=== PATIENT | female | born 2000 | race Caucasian/White ===

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

== ENCOUNTER → 2021-03-12 09:02 | Outpatient (CLI) | payer BC, SELFPAY ==
[2021-03-13 18:18] LABS: SARS-CoV-2 RNA PCR Negative
== END ==
PROVIDERS: PCP Nurse Practitioner Family; Visit Provider Nurse Practitioner Family
DX: R09.81 Nasal congestion (principal); Z20.822 Contact with and (suspected) exposure to COVID-19
CPT/HCPCS: C9803; U0003; U0005

== ENCOUNTER 2021-11-19 15:02 | Outpatient (CLI) | payer BC, SELFPAY ==
--- NOTE | ~2021-11-19 | CT_ITS ---
EXAMINATION: CT abdomen pelvis w con DATE: 11/19/2021 15:35 INDICATION: Right lower quadrant abdominal pain for 2 days. Nausea, diarrhea. TECHNIQUE: Computed tomography (CT) of the abdomen and pelvis was performed with 100 CC Omnipaque 350 intravenous contrast. Automated exposure control and iterative reconstruction technique were employe d. Exam dose: 366.12 mGy-cm total exam DLP. COMPARISON: None. FINDINGS: The lung bases are clear. Normal heart size. No pericardial or pleural effusion. The liver, gallbladder, bile ducts, spleen, pancreas, pancreatic duct, and adrenal glands and kidneys appear normal. No urinary tract calculus or hydroureteronephrosis is evident. The uterus, adnexal areas and urinary bladder appear normal. Normal caliber of the abdominal aorta. No intraperitoneal or retroperitoneal or pelvic mass lesion or adenopathy or ascites. Normal appendix. Minimal colonic diverticulosis; no CT evidence of diverticulitis. No bowel obstruction or intraperitoneal free air. Included skeletal structures are unremarkable. IMPRESSION: Normal appendix Reviewed, dictated and finalized at Location A. Reviewed, dictated and finalized at location B. IMPRESSION: Normal appendix
== END 2021-11-19 15:03 | disposition home or self-care (01) ==
LOC: ANHIMG 15:05
PROVIDERS: PCP Nurse Practitioner Family; Visit Provider Nurse Practitioner Family
DX: R10.31 Right lower quadrant pain (principal)
CPT/HCPCS: 74177; Q9967

== ENCOUNTER 2024-03-05 09:02 | Outpatient (CLI) | payer BC, SELFPAY ==
--- NOTE | ~2024-03-05 | US_ITS ---
US breast LT limited INDICATION: Palpable left breast/axillary lump TECHNIQUE: Dedicated Limited left breast/axillary ultrasound COMPARISON: No prior studies for comparison. FINDINGS: The left breast/axilla is/are composed of normal heterogeneous echotexture without focal so lid or cystic mass. IMPRESSION: 1: Normal limited left breast/axillary ultrasound. BI-RADS CATEGORY 1 - NEGATIVE Reviewed, dictated and finalized at location B. S TIE TURNER
== END 2024-03-05 09:03 | disposition home or self-care (01) ==
LOC: MICIMG 09:05
PROVIDERS: PCP Nurse Practitioner; Visit Provider Nurse Practitioner
DX: N63.20 Unspecified lump in the left breast, unspecified quadrant (principal)
CPT/HCPCS: 76642

== ENCOUNTER 2024-04-16 09:22 | Outpatient (CLI) | payer BC, SELFPAY ==
--- NOTE | ~2024-04-16 | MM_ITS ---
EXAMINATION: MM diagnostic stephanie LT w tj HISTORY: Palpable left breast abnormality TECHNIQUE: Additional 3-D tomosynthesis images of the left breast were performed and synthetic 2-D im ages were generated. CAD analysis was submitted and interpreted. COMPARISON: Ultrasound dated 03/05/2024 BREAST PARENCHYMAL COMPOSITION: Not dense: There are scattered areas of fibroglandular density. FINDINGS: There are no suspicious masses, calcifications or architectural distortion in the left jhony st to suggest malignancy. No findings to correspond to the area of palpable concern. IMPRESSION: 1. No evidence for malignancy in the left breast. BI-RADS CATEGORY 1 - NEGATIVE Reviewed, dictated and finalized at location B. F SCIENTIFIC OFFICER
== END 2024-04-16 09:23 | disposition home or self-care (01) ==
LOC: MICIMG 09:23
PROVIDERS: PCP Surgery; Visit Provider Surgery
DX: N63.20 Unspecified lump in the left breast, unspecified quadrant (principal); N63.21 Unspecified lump in the left breast, upper outer quadrant
CPT/HCPCS: 77061; 77065; G0279

== ENCOUNTER 2024-05-03 12:40 | Emergency (ER) | payer BC, SELFPAY ==
--- NOTE | 2024-05-03 12:51 | ED_ITS ---
HPI - URI/Sore Throat General Chief Complaint: Upper Respiratory Infection Stated Complaint: flu Time Seen by Provider: 05/03/24 12:51 Source: patient Mode of arrival: ambulatory Limitations: no limitations History of Present Illness HPI Narrative: Patient is a 23-year-old female who presents with 1 day of body aches, fatigue and vomiting. Patient was sent home from work. Denies any fever, chills, congestion, sore throat, cough. Related Data Home Medications ?Medication ?Instructions ?Recorded ?Confirmed ?Last Taken ?Type rizatriptan 10 mg tablet 10 mg PO ONCE PRN 03/26/24 Unknown History Allergies Allergy/AdvReac Type Severity Reaction Status Date / Time No Known Allergies Allergy Verified 05/03/24 13:05 Review of Systems Review of Systems: All systems reviewed & are unremarkable except as noted in HPI and below Constitutional: Constitutional: Denies chills, Reports fatigue, Denies fever(s), Denies headache(s), Denies malaise and Denies weakness Eyes: Eyes: Denies blurry vision, Denies itchy eyes and Denies loss of vision ENT: Denies otalgia, Denies headache(s), Denies nasal congestion, Denies sinus pain and Denies sore throat Cardiovascular: Cardiovascular: Denies chest pain, Denies irregular heart rhythm and Denies dyspnea Respiratory: Respiratory: Denies cough and Denies dyspnea Gastrointestinal: Gastrointestinal: Denies abdominal pain, Denies diarrhea, Reports nausea and Reports vomiting Musculoskeletal: Musculoskeletal: Denies back pain, Reports myalgias and Denies arthralgias Integumentary/Breasts: Skin/Breast: Denies pruritus and Denies rash Neurologic: Denies headache(s), Denies loss of vision and Denies weakness Psychiatric: Psychiatric: Reports no additional psychiatric complaints Endocrine: Endocrine: Reports fatigue Allergic/Immunologic: Allergic/Immunologic: Denies itchy eyes PMFSH Social History Social History Smoking status: Never smoker Tobacco type: e-cigarettes/vaping Alcohol intake: current Substance use: current Substance use type: marijuana Do You Feel Safe in your Home?: Yes Lack of Transportation: No Lack of Food: Never True Current Housing: I Have Housing Concerned About Future Housing: No Difficulty Paying Gas/Electric Bills: No Difficulty Paying for Meds: No Currently Unemployed: No Education: High School Diploma/GED Difficulty w/ Childcare or Family Care: No Comments At time of signature, agree with nursing past medical, surgical, social and family history. There is no relevant family history pertinent to the presenting complaint. Exam Const: General: cooperative, healthy appearing, comfortable, no acute distress and well nourished Nutritional Appearance: well nourished Orientation/consciousness: patient oriented x3 Limitations: no limitations HENMT: Head: normal to inspection, normocephalic and atraumatic Ears: hearing grossly normal bilaterally, external ears normal, TM's normal bilaterally, EAC's normal and no periauricular adenopathy Face/Nose/Sinus: Normal external nose present, Normal nasal mucous membranes and turbinates present, normal facial exam, sinuses nontender and face symmetric Face and sinus: normal facial exam, sinuses nontender and face symmetric Mouth: Yes Normal oral and palatal mucosa present, Yes lip normal, Yes tongue normal, Yes Normal salivary glands and ducts present, Yes oropharynx normal and Yes moist mucous membranes Teeth and gingiva: dentition normal Throat: posterior oropharynx normal, tonsils normal and uvula midline Eyes: General: appearance normal, both eyes and all related structures Alignment and Position: alignment normal and position normal Periorbital: periorbital findings normal Eyelids: eyelids normal Pupils: Equal, round and reactive pupils present Neck: Neck: normal visual inspection, full ROM, no lymphadenopathy and supple Chest: Chest palpation & inspection: normal inspection of the chest and normal palpation of entire chest wall Resp: Effort & Inspection: normal respiratory effort and able to speak in complete sentences Auscultation: clear to auscultation bilaterally, no crackles, no rales, no rhonchi and no wheezes Cardio: Rate: regular rate Rhythm: regular rhythm Heart sounds: S1 normal heart sound present and S2 normal heart sound present GI: Inspection: normal to inspection GI Palp: No abdominal tenderness and Yes Soft to palpation Skin: General skin exam: normal color and no rashes or lesions noted Neuro: General: patient oriented x3 and moves all extremities Cranial nerves: Yes Equal, round and reactive pupils present Speech: normal speech Gait exam (Neuro): Normal gait present Extrem: General: normal to inspection, full ROM and no edema Psych: Appearance: grossly normal and well kempt Mental Status: mental status grossly normal Speech and movement: Normal speech and movement present Affect: normal affect Attitude: cooperative Thought process: Normal thought process present Course Course Emergency Course: Discharge instructions reviewed with patient, as well as provided in writing per nursing staff. The instructions also include specific and strict return/GO TO THE ER as well as f/u information. All questions have been answered, and the patient deny any further questions with discharge and discharge plan. Portions of this record may have been created with voice recognition software Level of Care: Express Care Visit Vital Signs Vital signs: Vital Signs Temperature 36.4 C 05/03/24 13:04 Pulse Rate 71 05/03/24 13:04 Respiratory Rate 16 05/03/24 13:04 Blood Pressure 124/81 05/03/24 13:04 Pulse Oximetry 100 05/03/24 13:04 Oxygen Delivery Room Air 05/03/24 13:04 Temperature 36.4 C 05/03/24 13:04 Pulse Rate 71 05/03/24 13:04 Respiratory Rate 16 05/03/24 13:04 Blood Pressure 124/81 05/03/24 13:04 Pulse Oximetry 100 05/03/24 13:04 Oxygen Delivery Room Air 05/03/24 13:04 Reviewed MDM - URI/Sore Throat MDM Narrative Medical decision making narrative: Pt well hydrated appearing, in no respiratory distress, hemodynamically stable. Recommend supportive care. The patient is stable at time of discharge the clinical impression was discussed and the patient was given the opportunity to ask questions, which were addressed as completely as possible given the information available at present. Anticipatory guidance and return to care precautions were discussed and the importance of primary care follow-up was stressed and encouraged. The patient voiced understanding of the plan, indications to return, and the need for follow-up. Differential diagnosis considered: Bronchitis, Quezada virus, strep pharyngitis, allergic rhinitis, upper respiratory tract infection, sinusitis, rhinosinusitis, nasopharyngitis. viral pharyngitis, otitis media, otitis externa, otitis effusion, foreign body, cerumen impaction, viral syndrome, and influenza.? Exam findings show no acute concerns or changes; patient is non-toxic appearing and is in no distress.? Patient is appropriate for outpatient treatment and follow-up.? Medical Records Attestation: I reviewed the patient's medical records. Lab Data Attestation: I reviewed the patient's lab results. Labs: Lab Results 05/03/24 Range/Units 13:24 POC Influenza A Ag Negative (Negative) POC Influenza B Ag Negative (Negative) POC SARS CoV-2 Ag Negative (Negative) Discharge Plan Discharge Clinical Impression: Gastroenteritis Patient Disposition: Home, Self-Care Condition: Stable Instructions: Gastroenteritis (ED) Additional Instructions: Your Covid and flu are both negative Your symptoms are likely due to a viral illness, which is not treated with antibiotics. Viral symptoms can be present for up to a few weeks. Stay hydrated. Take small sips of fluid containing electrolytes frequently(Body [place], Gatorade, Powerade, liquid IV). Eat small meals that her very bland including bananas, applesauce, rice, toast, boiled or grilled chicken, soup. Do not eat anything fried, spicy or overly acidic. You should go to the hospital if you experience return of persistent nausea and vomiting that does not resolve and does not allow you to tolerate any food or fluids, persistent fevers for greater than 2-3 more days, increasing abdominal pain that persists despite medications, persistent diarrhea, dizziness, syncope (fainting), or for any other concerns. -For pain/fever, you may take: Tylenol 650-1000mg by mouth every 4-6 hours. Do not exceed 4000mg in 24 hours. Advil (Ibuprofen) 600 mg by mouth every 6 hours. Do not exceed 2400mg in 24 hours. 8 AM: Tylenol 11 AM: Ibuprofen 2 PM: Tylenol 5 PM: Ibuprofen 8 PM: Tylenol 11 PM: Ibuprofen 2 AM: Tylenol 5 AM: Ibuprofen -Antihistamine medication such as Benadryl/Zyrtec at night and Claritin/Rafia during the day can help improve symptoms. -Use Flonase twice a day for 5 days then daily to help reduce the inflammation and dry up your sinuses. -You can also use Sudafed behind the pharmacy counter(12 or 24 hour). Be sure to drink plenty of water with these medications at least 8 ounces with every dose and it is important to drink 8 to 10 glasses of water per day. Water is a natural decongestant -Eat and drink things that are easy to swallow, like tea or soup, or popsicles. -Oral rinses such as: Salt water gargles and/or may use topical anesthetic (eg. Chloraseptic spray) or lozenges to relieve dryness or throat pain). -Frequent hand washing or hand capacity analyst is one of the best ways to prevent spread of infection. -Using a vaporizer or humidifier at night will also help thin secretions and help with coughing up phlegm. Call your Primary Care Doctor and make a follow-up appointment in 3 days. If your cough worsens, you develop a fever greater than 103, you develop shaking chills, a fast heartbeat, trouble breathing and/or feel you are are breathing much faster than usual, call your Primary Care Doctor or go to the ER. Patient Language: Moldovan Prescriptions: New ondansetron 4 mg tablet,disintegrating 4 mg PO Q6-8H PRN (Reason: nausea and vomiting) Qty: 7 0RF No Action rizatriptan 10 mg tablet 10 mg PO ONCE PRN Rx Instructions: as a single dose Follow-up/Referrals: DARLING,JUAN MOTT [Primary Care Provider] - 3 Days Stand Alone Forms: Work/School Release IP Time of Disposition: 13:36
[2024-05-03 13:04] VITALS: BP 124/81; PULSE 71; RESP 16; TEMP 36.4; O2SAT 100
--- OUTSIDE RECORDS SUMMARY | 2024-05-03 13:10 | XMS_ITS | Clinical Summary ---
Author Organization [facility] Address [address] [place] [address] Care Team Providers Care Glass Beveller Name Role Phone Sissy Thorpe MD Primary Care Provider [phone] Source Comments [facility],non-owned Affiliates and Associated Physician Practices is amultiple site organization consisting of ambulatory clinics and hospital sitesin [place], [place], [place] and [place]. This disclosure is being madepursuant to the Care Everywhere program and may not contain all information available regarding this patient. Last updated 17.[facility] Allergies No known active allergies Medications * Be aware that medications may not be up to date on this document. Alwaysverify current medications with the patient. Medication Sig Dispensed Refills Start Date End Date Status medroxyPROGESTERone (DEPO-PROVERA) 150 MG/ML prefilled syringe INJECT UTD 01/24/2020 Active Active Problems Problem Noted Date Diagnosed Date Asthma 11/26/2018 Family History Medical History Relation Name Comments Negative Family History Brother Negative Family History Father Negative Family History Maternal Aunt Negative Family History Maternal Grandfather Negative Family History Maternal Grandmother Negative Family History Maternal Uncle Negative Family History Mother Negative Family History Paternal Aunt Negative Family History Paternal Grandfather Negative Family History Paternal Grandmother Negative Family History Paternal Uncle Negative Family History Sister Relation Name Status Comments Brother Father Maternal Aunt Maternal Grandfather Maternal Grandmother Maternal Uncle Mother Paternal Aunt Paternal Grandfather Paternal Grandmother Paternal Uncle Sister Social History Tobacco Use Types Packs/Day Years Used Date Smoking Tobacco: Never Smokeless Tobacco: Never Alcohol Use Standard Drinks/Week Comments No 0 (1 standard drink = 0.6 oz pur e alcohol) Sex and Gender Information Value Date Recorded Sex Assigned at Not on file Gender Identity Not on file Sexual Orientation Not on file Last Filed Vital Signs Vital Sign Reading Time Taken Comments Blood Pressure 116/68 09/26/2020 11:25 AM CDT Pulse 68 09/26/2020 11:25 AM CDT Temperature 37.1 C (98.8 F) 09/26/2020 11:25 AM CDT Respiratory Rate 16 09/26/2020 11:25 AM CDT Oxygen Saturation 97% 09/26/2020 11:25 AM CDT Inhaled Oxygen Concentration - - Weight 68 kg (150 lb) 09/26/2020 11:25 AM CDT Height 160 cm (5' 3 ) 09/26/2020 11:25 AM CDT Body Mass Index 26.57 09/26/2020 11:25 AM CDT Plan of Treatment Health Maintenance Due Date Last Done Comments PAP SMEAR 2001 HIV SCREENING 2016 HPV VACCINE (1 - 3-dose series) 2016 CHLAMYDIA/GONORRHEA SCREENING 2017 MENINGOCOCCAL (Group B) VACC INE (1 of 2 - Standard) 2017 HEPATITIS C SCREENING 11/11/2019 DTAP/TDAP/TD VACCINES (1 - Tdap) 2020 HEPATITIS B VACCINE (1 of 3 - 19+ 3-dose series) 2020 PNEUMOCOCCAL VACCINE (1 of 2 - PCV) 2020 COVID-19 VACCINE (1 - 2023-2 5 season) 2023 INFLUENZA VACCINE (#1) 2023 11/11/2019 DEPRESSION SCREENING 02/28/2024 ZOSTER VACCINE (1 of 2) 11/16/2051 HIB VACCINE Aged Out No longer eligi ble based on patient's age to complete this topic MENINGOCOCCAL VACCINE Aged Out No nelli darren eligible based on patient's age to complete this topic Care Teams Glass Beveller Relationship Specialty Start Date End Date Sissy Thorpe MD [address] [place] [address] PCP - General Pediatrics 09/26/12
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
--- OUTSIDE RECORDS SUMMARY | 2024-05-03 13:10 | XMS_ITS | Patient Health Summary ---
Author Organization [facility] Address [address] [place] [address] Care Team Providers Care Sow Farm Barn Technician Name Role Phone Sissy Thorpe MD Primary Care Provider [phone] Note from [facility],non-owned Affiliates and Associated Physician Practices is amultiple site organization consisting of ambulatory clinics and hospital sitesin [place], [place], [place] and [place]. This disclosure is being madepursuant to the Care Everywhere program and may not contain all information available regarding this patient. Last updated 17.[facility] Allergies No known active allergies Medications * Be aware that medications may not be up to date on this document. Alwaysverify current medications with the patient. * medroxyPROGESTERone (DEPO-PROVERA) 150 MG/ML prefilled syringe(Started 01/24/2020) INJECT UTD Active Problems Problem Noted Date Diagnosed Date Asthma 11/26/2018 Social History Tobacco Use Types Packs/Day Years [...] Mass Index 26.57 09/26/2020 11:25 AM CDT Procedures * SKIN TEST PPD - POINT OF CARE(Performed 09/24/2020) Performed for Encounter for screening for respiratory tuberculosis * CT ANGIO BRAIN AND NECK(Performed 11/10/2018) Performed for Acute nonintractable headache, unspecified headache type * CREATININE BLOOD(Performed 11/10/2018) * CULTURE TISSUE+GRAM STAIN(Performed 05/10/2017) Performed for Foraminal stenosis of cervical region * CULTURE FUNGUS OTHER+FUNGUS SMEAR(Performed 05/10/2017) Performed for Foraminal stenosis of cervical region * CULTURE AFB+SMEAR(Performed 05/10/2017) Performed for Foraminal stenosis of cervical region * CYTOGENETICS CANCER PANEL(Performed 05/10/2017) Performed for Foraminal stenosis of cervical region * BIOPSY/EXCISION LYMPH NODE(Performed 05/10/2017) Performed for Foraminal stenosis of cervical region * PATHOLOGY TISSUE EXAM (STL)(Performed 05/10/2017) Performed for Foraminal stenosis of cervical region * HCG URINE QUALITATIVE - POCT (IP) BEAKER(Performed 05/10/2017) * LAB RESULTS ORDER(Performed 04/19/2017) * IMAGING/RADIOLOGY/XRAY RESULTS ORDER(Performed 04/19/2017) * BARTONELLA ANTIBODY PANEL(Performed 04/18/2017) Performed for Lymphadenopathy of head and neck * URIC ACID BLOOD(Performed 04/18/2017) Performed for Lymphadenopathy of head and neck * LDH BLOOD(Performed 04/18/2017) Performed for Lymphadenopathy of head and neck * CULTURE STREP GROUP A(Performed 01/11/2014) Results * SKIN TEST PPD - POINT OF CARE (09/24/2020 10:40 AM CDT) PPD 0 mm [facility] Comment:negative Other MISCELLANEOUS SAMPLE S / Unknown 09/24/2020 10:40 AM CDT Yary Wright WRECKING CAR DRIVER-SECURITY GUARD DISPATCHER LAB - POINT OF CARE ORDERABLES [facility] [address] [phone] * CT ANGIO NECK HEAD (11/10/2018 1:53 AM CDT) Anatomical Region Laterality Modality Head Computed Tomogra phy 11/10/2018 8:55 AM CDT Impressions 11/10/2018 9:04 AM CDT 1. No acute intracranial hemorrhage. The brain is normal. 2. Negative for aneurysm. No large arterial occlusions or significant stenoses identified in the head or neck. 3. Cervical reactive adenitis. 4. Pansinusitis. The preliminary results were reported by Dr. Damon on 11/10/2018 at 0223 hours. Reading Radiologist: Angus Sorenson MD on 11/10/2018 at 9:04 AM Narrative 11/10/2018 9:04 AM CDT EXAMINATION: 1. Computed tomographic (CT) angiography of the head without and with contrast 2. CT angiography of the neck with contrast HISTORY: Headache COMPARISON: None. TECHNIQUE: CT of the head was performed without contrast according to standard protocol. Then CT angiography of the head and neck was obtained after the uneventful administration of 95 mL Isovue-300 intravenous contrast. Coronal and sagittal MIP reconstruction of the head and neck was performed by the technologist and sent to PACS for review. DOSE: CTDIvol: 75.76 mGy, DLP: 874.04 mGy-cm The reported CTDIvol (mGy) and DLP (mGy-cm) values are generated from scan acquisition factors based on a 32 cm body phantom or 16 cm head phantom and may underestimate or overestimate the actual patient dose based on patient size and other factors. NON-ANGIOGRAPHIC FINDINGS: No acute intra- or extra-axial hemorrhage is identified. The ventricles are of normal size, shape, and morphology. The basilar cisterns are patent. No mass, edema, mass effect or midline shift is seen. The finley-white matter differentiation is normal. After contrast administration, there are no enhancing lesions in the brain. The orbital contents are normal and symmetric. There is pansinusitis with varying volume FLUID in all the paranasal sinuses with additional mucosal thickening. The middle ear cavities and mastoid air cells are clear. No acute fracture or scalp swelling is identified. The lymph nodes in levels 2 through 5 are enlarged and the largest lymph nodes are in bilateral level 2 measuring up to 12 mm in short axis on the left side. There is no evidence of necrosis of the lymph nodes. The soft tissues of the neck are otherwise unremarkable. In particular, epiglottis is normal and adenoid and palatine tonsils are not enlarged. There is no abscess in the soft tissues of the neck the imaged upper lungs are clear. ANGIOGRAPHIC FINDINGS: The visible aortic arch appears normal. There is a common origin of the innominate and left common carotid arteries from the aortic arch. The innominate artery and both subclavian arteries appear normal. The right common and internal carotid arteries as well as the right carotid bifurcation appear normal. The left common and internal carotid arteries as well as the left carotid bifurcation appear normal. The cervical vertebral arteries appear normal. The left vertebral artery is dominant. The distal internal carotid arteries appear normal. The anterior and middle cerebral arteries appear normal. The distal vertebral arteries appear normal. The basilar artery and posterior cerebral arteries appear normal. No aneurysms, vascular occlusions, or intracranial stenoses are identified. Procedure Note Angus Sorenson MD - 11/10/2018 EXAMINATION: 1. Computed tomographic (CT) angiography of the head without and with contrast 2. CT angiography of the neck with contrast HISTORY: Headache COMPARISON: None. TECHNIQUE: CT of the head was performed without contrast according to standard protocol. Then CT angiography of the head and neck was obtained after the uneventful administration of 95 mL Isovue-300 intravenous contrast. Coronal and sagittal MIP reconstruction of the head and neck was performed by the technologist and sent to PACS for review. DOSE: CTDIvol: 75.76 mGy, DLP: 874.04 mGy-cm The reported CTDIvol (mGy) and DLP (mGy-cm) values are generated from scan acquisition factors based on a 32 cm body phantom or 16 cm head phantom and may underestimate or overestimate the actual patient dose based on patient size and other factors. NON-ANGIOGRAPHIC FINDINGS: No acute intra- or extra-axial hemorrhage is identified. The ventricles are of normal size, shape, and morphology. The basilar cisterns are patent. No mass, edema, mass effect or midline shift is seen. The finley-white matter differentiation is normal. After contrast administration, there are no enhancing lesions in the brain. The orbital contents are normal and symmetric. There is pansinusitis with varying volume FLUID in all the paranasal sinuses with additional mucosal thickening. The middle ear cavities and mastoid air cells are clear. No acute fracture or scalp swelling is identified. The lymph nodes in levels 2 through 5 are enlarged and the largest lymph nodes are in bilateral level 2 measuring up to 12 mm in short axis on the left side. There is no evidence of necrosis of the lymph nodes. The soft tissues of the neck are otherwise unremarkable. In particular, epiglottis is normal and adenoid and palatine tonsils are not enlarged. There is no abscess in the soft tissues of the neck the imaged upper lungs are clear. ANGIOGRAPHIC FINDINGS: The visible aortic arch appears normal. There is a common origin of the innominate and left common carotid arteries from the aortic arch. The innominate artery and both subclavian arteries appear normal. The right common and internal carotid arteries as well as the right carotid bifurcation appear normal. The left common and internal carotid arteries as well as the left carotid bifurcation appear normal. The cervical vertebral arteries appear normal. The left vertebral artery is dominant. The distal internal carotid arteries appear normal. The anterior and middle cerebral arteries appear normal. The distal vertebral arteries appear normal. The basilar artery and posterior cerebral arteries appear normal. No aneurysms, vascular occlusions, or intracranial stenoses are identified. IMPRESSION 1. No acute intracranial hemorrhage. The brain is normal. 2. Negative for aneurysm. No large arterial occlusions or significant stenoses identified in the head or neck. 3. Cervical reactive adenitis. 4. Pansinusitis. The preliminary results were reported by Dr. Damon on 11/10/2018 at 0223 hours. Reading Radiologist: Angus Sorenson MD on 11/10/2018 at 9:04 [address] Ann MD CT ORDERABL ES * CREATININE BLOOD (11/10/2018 12:47 AM CDT) Creatinine 0.71 0.61 - 1.07 mg/dL 11/10/2018 1:20 AM CDT [facility] eGFR by MDRD 11/10/2018 1:20 AM CDT [facility] Comment: eGFR calculations are not performed for children under 18 years old. eGFR by MDRD 11/10/2018 1:20 AM CDT [facility] Comment: eGFR calculations are not performed for children under 18 years old. Blood BLOOD SPECIMEN / Unknown Venipuncture / Unknown 11/10/2018 12:47 AM CDT 11/10/2018 12:56 AM CDT Carie Ann MD LAB - CHEMI STRY ORDERABLES [facility] [address] [place] [id number] * CULTURE FUNGUS OTHER+FUNGUS SMEAR (05/10/2017 12:14 PM CDT) Culture No fungus isolated JEFFY 06/05/2017 3:11 AM CDT [facility] Fungus Smear No yeast or hyphae seen 06/05/2017 3:11 AM CDT [facility] Microbiology ENTIRE CERVICAL LYMPH NODE / Unknown Collection / Unknown 05/10/2017 12:14 PM CDT 05/10/2017 12:14 PM CDT Latoya Blakely MD LAB - MICROBIOLOG Y ORDERABLES [facility] [address] [place], [place] [address] [phone] * (ABNORMAL) CULTURE TISSUE+GRAM STAIN (05/10/2017 12:14 PM CDT) Culture Growth from broth only Propionibacterium acnes(AA) JEFFY 05/19/2017 11:52 AM CDT [facility] Gram Stain Light Red blood cells 05/19/2017 11:52 AM CDT [facility] Gram Stain No organisms seen 018 11:52 AM CDT [facility] Microbiology ENTIRE CERVICAL LYMPH NODE / Unknown Collection / Unknown 05/10/2017 12:14 PM CDT 05/10/2017 12:14 PM CDT Latoya Blakely MD LAB - MICROBIOLOG Y ORDERABLES [facility] [address] [place] [address], [facility] [phone] * CULTURE AFB+SMEAR (05/10/2017 12:14 PM CDT) Culture No acid-fast bacillus isolated 06/19/2017 8:51 AM CDT [facility] AFB Smear No acid-fast bacilli seen 06/19/2017 8:51 AM CDT [facility] Microbiology ENTIRE CERVICAL LYMPH NODE / Unknown Collection / Unknown 05/10/2017 12:14 PM CDT 05/10/2017 12:14 PM CDT Latoya Blakely MD LAB - MICROBIOLOG Y ORDERABLES Performing Organization Address City/[facility]/ZIP Co de Phone Number [facility] [address] [place] [address], [facility] [phone] * CYTOGENETICS CANCER PANEL (05/10/2017 12:00 PM CDT) Indication for Study R/O Lymphoma (Pretreatment) 05/12/2017 7:49 AM CDT [facility] Results Cytogenetics Analysis and count of 9 cells (6 cells karyotyped, GTL-banding) from 1:7 and 1:10 unstimulated lymph node cultures showed the following chromosome pattern: 46,XX[9] 05/12/2017 7:49 AM CDT [facility] Interpretation Female chromosome analysis showing 46,XX with no evidence for any clonal structural or numerical abnormality in all cells examined at 400 average band resolution. FISH of lymphoma panel was not performed because the flow results were negative. 05/12/2017 7:49 AM CDT [facility] Embedded Images 8 7:49 AM CDT [facility] Other ENTIRE LYMPH NODE / Unknown 05/10/2017 12:00 PM CDT 05/10/2017 12:29 PM CDT Latoya Blakely MD LAB - PATHOLOGY/C YTOLOGY ORDERABLES [facility] [address] [place] [address] * GROSS + MICRO EXAM (STL) (05/10/2017 8:53 AM CDT) Case Report Surgical Pathology Report Case: [id number] Authorizing Provider: Latoya Blakely MD Collected: 05/10/2017 08:53 AM Ordering Location: [facility] Received: 05/10/2017 11:41 AM Pathologist: Alireza Baird MD Specimen: Lymph Node, left cervical lymph node 05/15/2017 12:50 PM CDT [facility] Final Diagnosis LYMPH NODES (3), LEFT CERVICAL, BIOPSY: - FOLLICULAR HYPERPLASIA (3 NODES). COMMENT: Flow cytometric analysis, performed at [facility] ([address] [place] [address], ) and interpreted by Dr. Nesbitt, showed No evidence of non-Hodgkin lymphoma ; for additional details, see [facility] Flow Cytometry Report [id number] LB. Cytogenetic analysis showed a normal female karyotype (46,XX); for additional details, see Dr. Cobos's Cytogenomic Report [id number] A. 05/15/2017 12:50 PM CDT [facility] Addendum electronically signed by Alireza Baird MD on 05/15/2017 at 12:50 PM Clinical History The patient is a 16-year-old girl presented with enlarging left level V lymphadenopathy painful to palpation who underwent left cervical lymph node biopsy. The patient has slight elevation of LDH and uric acid. 05/15/2017 12:50 PM CDT [facility] Gross Description Submitted fresh in one container for gross and microscopic examination labeled with the patient's name, Willem Wells, and left cervical lymph node is a 1.7 x 1 x 0.5 cm ovoid, pink-lee lymph node and two matted pink-lee lymph nodes with an aggregate measurement of 1.5 x 0.5 x 0.4 cm. The lymph nodes are bisected, and cut surface reveals homogeneous, yellow-lee lymphoid tissue. A portion of the specimen is submitted for flow cytometric and cytogenetic analysis. A portion of the specimen is submitted for bacterial, mycobacterial, and fungal cultivation. The balance of the specimen is submitted in cassettes A1 and A2. (CT/kf) 05/15/2017 12:50 PM T [facility] Microscopic Description 2 H&E. Sections show lymph nodes with florid follicular hyperplasia. (DSB) 05/15/2017 12:50 PM T [facility] Disclaimer The performance characteristics of all immunohistochemical and indirect immunofluorescence stains (if any) cited in this report were determined by the Histopathology Laboratory of [facility]. Some of these tests were developed by our own laboratory and have not been cleared or approved by the US Food and Drug Administration (FDA). The FDA does not require this test to go through premarket FDA review. These tests are used for clinical purposes. They should not be regarded as investigational or for research. This laboratory is certified under the Clinical Laboratory Improvement Amendments (CLIA) as qualified to perform high complexity clinical laboratory testing. This case has been personally reviewed and interpreted by the attending (teaching) pathologist. 05/15/2017 12:50 PM CDT [facility] Embedded Images 05/15/2017 12:50 PM T [facility] Pathology/Cytolo gy ENTIRE LYMPH NODE / Unknown 05/10/2017 8:53 AM CDT 05/10/2017 11:41 AM CDT Latoya Blakely MD LAB - PATHOLOGY/C YTOLOGY ORDERABLES [facility] [address] [place] [address] * HCG URINE QUALITATIVE - POCT (IP) SOMMER (05/10/2017 8:30 AM CDT) HCG Qual Urine Negative Negative [facility] POCT TESTING QC Verified Yes Yes [facility] PO CT TESTING Urine URINE / Unknown 05/10/2017 8 :30 AM CDT Latoya Blakely MD LAB - POINT OF CA RE ORDERABLES [facility] POCT TESTING [place] [address] [phone] * LAB RESULTS ORDER (04/19/2017 5:47 PM INSTRUMENT ADJUSTER) Narrative 04/19/2017 5:47 PM INSTRUMENT ADJUSTER Ordered by an unspecified provider. Scanned Document LAB - THERAPEUTIC DR EVER MONITORING ORDERABLES * IMAGING/RADIOLOGY/XRAY RESULTS ORDER (04/19/2017 5:47 PM INSTRUMENT ADJUSTER) Anatomical Region Laterality Modality Other Narrative 04/19/2017 5:47 PM INSTRUMENT ADJUSTER Ordered by an unspecified provider. Scanned Document IMAGING * BARTONELLA ANTIBODY PANEL (04/18/2017 12:41 PM INSTRUMENT ADJUSTER) Bartonella henselae Antibody IgG Negative Neg:<1:32 0 titer 04/21/2017 12:17 PM INSTRUMENT ADJUSTER [facility] Bartonella henselae Antibody IgM Negative Neg:<1:10 0 titer 04/21/2017 12:17 PM INSTRUMENT ADJUSTER [facility]) Bartonella cristina Antibody IgG Negative Neg:<1:32 0 titer 04/21/2017 12:17 PM INSTRUMENT ADJUSTER [facility]) Bartonella cristina Antibody IgM Negative Neg:<1:10 0 titer 04/21/2017 12:17 PM INSTRUMENT ADJUSTER [facility] Comment: Note: Bartonella henselae is now regarded as the etiologic agent of Cat Scratch Disease, bacillary angiomatosis, endocarditis and fever with bacteremia. Bartonella cristina also causes bacillary angiomatosis particularly among immunocompromised patients, and trench fever. This test was developed and its performance characteristics determined by [facility]. It has not been cleared or approved by the Food and Drug Administration. The FDA has determined that such clearance or approval is not necessary. Blood BLOOD SPECIMEN / Unknown Lab Venipuncture / Unknown 04/18/2017 12:41 PM INSTRUMENT ADJUSTER 04/18/2017 1:10 PM INSTRUMENT ADJUSTER Narrative [facility] ([facility]) - 04/21/2017 12:17 PM INSTRUMENT ADJUSTER Performed at: 01 - [facility] [address] [id number] Interpreter Translator: Marcelo Jimenez MD, Phone: [phone] Arun Molina MD LAB - SEROLOGY OR DERABLES [facility] ([facility]) [address] [place] [address] * (ABNORMAL) URIC ACID BLOOD (04/18/2017 12:41 PM INSTRUMENT ADJUSTER) Uric Acid 6.3(H) 2.0 - 5.5 mg/dL 04/18/2017 2:00 PM INSTRUMENT ADJUSTER [facility] Blood BLOOD SPECIMEN / Unknown Lab Venipuncture / Unknown 04/18/2017 12:41 PM INSTRUMENT ADJUSTER 04/18/2017 1:10 PM INSTRUMENT ADJUSTER Arun Molina MD LAB - CHEMISTRY O RDERABLES Performing Organization Address [facility] Co de Phone Number [facility] [address] [place] [address] * (ABNORMAL) LDH BLOOD (04/18/2017 12:41 PM INSTRUMENT ADJUSTER) LDH 374(H) 140 - 260 U/L 04/18/2017 2:00 PM INSTRUMENT ADJUSTER [facility] Blood BLOOD SPECIMEN / Unknown Lab Venipuncture / Unknown 04/18/2017 12:41 PM INSTRUMENT ADJUSTER 04/18/2017 1:10 PM INSTRUMENT ADJUSTER Arun Molina MD LAB - CHEMISTRY O RDERABLES Performing Organization Address [facility]/ZIP Co de Phone Number [facility] [address] [place] [phone] * CULTURE STREP GROUP A (01/11/2014 7:50 PM INSTRUMENT ADJUSTER) Culture Beta Strep No Growth of Groups A, C or G Beta Streptococc us. [facility] Throat swab (specimen) ENTIRE THROAT (SURFACE REGION OF NECK) / Unknown 01/11/2014 7:50 PM INSTRUMENT ADJUSTER 01/12/2014 9:11 AM INSTRUMENT ADJUSTER Narrative [facility] - 01/14/2014 8:18 AM INSTRUMENT ADJUSTER AndersonSpecimen#[id number] Trevor Loc/Rm/Bed: ED// Historical Provider LAB - MICROBIOLOG Y ORDERABLES [facility] [address] [phone] Care Teams Sow Farm Barn Technician Relationship Specialty Start Date End Date Sissy Thorpe MD [address] [address] PCP - General Pediatrics 09/26/12
--- OUTSIDE RECORDS SUMMARY | 2024-05-03 13:10 | XMS_ITS | Encounter Summary ---
Author Organization [facility] Address [address] [place] [address] Care Team Providers Care Marketing Senior Recruiter Name Role Phone Harper Vieira Primary Care Provider [phone] Encounter Details Date Type Department Care Team (Late st Contact Info) Description 08/24/2022 MyChart Message [facility] [address] [place], [place] [address] [employer], [facility] Provider Air Quality Message Social History Tobacco Use Types Packs/Day Years Used Date Smoking Tobacco: Never Smokeless Tobacco: Never Alcohol Use Standard Drinks/Week Comments Yes 0 (1 standard drink = 0.6 oz pur e alcohol) couple drinks per year AUDIT-C Answer Date Recorded Frequency of Alcohol Consumption Never 11/26/2018 Average Number of Drinks Not on file 019 Frequency of Binge Drinking Not on file 10/30 PHQ-2 Answer Date Recorded Patient Health Questionnaire-2 Score 1 03/15/2022 Comments No Sex and Gender Information Value Date Recorded Sex Assigned at Not on file Legal Sex Female 3:59 PM CDT Gender Identity Not on file Sexual Orientation Not on file documented as of this encounter Plan of Treatment Not on file documented as of this encounter Visit Diagnoses Not on filedocumented in this encounter Additional Health Concerns Assessment Noted Time PHQ-9 Depression Total Score: 13 023 3:35 PM INDIAN TRADER documented as of this encounter Care Teams Marketing Senior Recruiter Relationship Specialty Start Date End Date Hraper Vieira FNP [address] [place], [place] [id number] PCP - General Nurse Practitioner Family 11/08/18 documented as of this encounter
--- OUTSIDE RECORDS SUMMARY | 2024-05-03 13:10 | XMS_ITS | Referral Summary ---
Author Organization [facility] Address [address] [facility] [address] Care Team Providers Care Web Assistant Name Role Phone Sissy Thorpe MD Primary Care Provider [phone] Source Comments [facility],non-owned Affiliates and Associated Physician Practices is amultiple site organization consisting of ambulatory clinics and hospital sitesin [place], [place], [place] and [place]. This disclosure is being madepursuant to the Care Everywhere program and may not contain all information available regarding this patient. Last updated 17.[facility] Allergies No known active allergies Medications [...] Mass Index 26.57 09/26/2020 11:25 AM CDT Functional Status Functional Status Response Date of Assess ment Is person deaf or have serious hearing difficult y? No 05/10/2017 Is person blind or have serious difficulty seein g? No 05/10/2017 Does person have serious dif ficulty walking/climbing stairs? No 05/10/2017 Does person have difficulty dressing/bathing? No 05/10/2017 Does person have difficulty doing errands alone? No 05/10/2017 Cognitive Status Response Date of Assessm ent Does person have difficulty concentrating/remembering/making decisions? No 05/10/2017 Plan of Treatment Not on file Administered Medications Care Teams Web Assistant Relationship Specialty Start Date End Date Sissy Thorpe MD [address] [facility] [address] [place] [address] PCP - General Pediatrics 09/26/12
[2024-05-03 13:26] LABS: EDCOVIDSCREEN Negative (Negative); EDINFLUASCREEN Negative (Negative); EDINFLUBSCREEN Negative (Negative)
== END 2024-05-03 13:38 | disposition home or self-care (01) ==
PROVIDERS: Emergency Provider Nurse Practitioner Family; PCP Nurse Practitioner Family
DX: K52.9 Noninfective gastroenteritis and colitis, unspecified (principal); Z20.822 Contact with and (suspected) exposure to COVID-19; F12.90 Cannabis use, unspecified, uncomplicated
CPT/HCPCS: 87426; 87804; 99213; G0463

== ENCOUNTER 2024-07-17 10:03 | Emergency (ER) | payer BC, SELFPAY ==
[2024-07-17 10:08] VITALS: BP 138/87; PULSE 72; RESP 18; TEMP 36.1; O2SAT 100
--- NOTE | 2024-07-17 10:10 | ED.URI ---
HPI - URI/Sore Throat General Chief Complaint: Upper Respiratory Infection Stated Complaint: Strep Symptoms Time Seen by Provider: 07/17/24 10:15 Source: patient Mode of arrival: ambulatory Limitations: no limitations History of Present Illness HPI Narrative: Willem is a 23-year-old female patient presenting to the clinic today with complaints of sore throat. States her throat is scratchy it she is losing her voice. She reports sore throat started yesterday. Denies any fevers, chills, body aches, runny nose, or cough. 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 Took 2 Tylenol this morning. Rates her pain currently a 6/10. Denies any chest pain or shortness of breath. Related Data Home Medications ?Medication ?Instructions ?Recorded ?Confirmed ?Last Taken ?Type No Home Medications 07/17/24 07/17/24 Unknown History Allergies Allergy/AdvReac Type Severity Reaction Status Date / Time No Known Allergies Allergy Verified 07/17/24 10:06 Review of Systems Review of Systems: Pertinent positives per HPI. Patient denies any fever, chills, rash, headache, visual changes, dizziness, cough, shortness of breath, chest pain, palpitations, nausea, vomiting, diarrhea, constipation, abdominal pain, or any urinary issues. PMFSH Social History Social History Smoking status: Never smoker Tobacco type: e-cigarettes/vaping Alcohol intake: current Substance use: current Substance use type: marijuana Do You Feel Safe in your Home?: Yes Lack of Transportation: No Lack of Food: Never True Current Housing: I Have Housing Concerned About Future Housing: No Difficulty Paying Gas/Electric Bills: No Difficulty Paying for Meds: No Currently Unemployed: No Education: High School Diploma/GED Difficulty w/ Childcare or Family Care: No Comments At the time of my signature, I reviewed and agree with the nursing past medical, surgical, social, and family history. There is no relevant family history pertinent to the patient complaint. Exam Narrative: General: Well-developed, well nourished, in no apparent distress Head: Normocephalic, atraumatic Eyes: Pupils equally round and reactive to light bilaterally, EOM intact, sclera and conjunctive clear, no discharge, lids normal Ears: TMs intact and clear, ear canals clear, no drainage, grossly hearing normal. Nose: Nares patent, no discharge, no inflammation, no sinus tenderness. Mouth: Oral pharynx mildly red without lesions or masses, good dentition, MMM. Neck: Supple, trachea midline, no enlargement of anterior or posterior cervical nodes, no thyroid masses or goiter palpable. Cardio: Regular rate and rhythm, s1 and s2 normal, no murmur appreciated. Resp: Clear to auscultation bilaterally, no rhonchi, rales, wheezing or rubs Course Course Emergency Course: Portions of this record may have been created with voice recognition software. Level of Care: Express Care Visit Vital Signs Vital signs: Vital Signs Temperature 36.1 C L 07/17/24 10:08 Pulse Rate 72 07/17/24 10:08 Respiratory Rate 18 07/17/24 10:08 Blood Pressure 138/87 07/17/24 10:08 Pulse Oximetry 100 07/17/24 10:08 Oxygen Delivery Room Air 07/17/24 10:08 Temperature 36.1 C L 07/17/24 10:08 Pulse Rate 72 07/17/24 10:08 Respiratory Rate 18 07/17/24 10:08 Blood Pressure 138/87 07/17/24 10:08 Pulse Oximetry 100 07/17/24 10:08 Oxygen Delivery Room Air 07/17/24 10:08 Vital signs reviewed MDM - URI/Sore Throat MDM Narrative Medical decision making narrative: At the time of visit patient is resting comfortably on the exam table. Patient appears to be nontoxic. Labs: Strep test was performed and negative in the clinic today. We will send strep for culture Plan: I suspect patient has viral pharyngitis. Supportive measures were discussed with the patient and they voiced understanding discharge instructions and agrees to treatment plan. Return precautions reviewed Differential Diagnosis Differential diagnosis: Likely upper respiratory infection, otitis media, sinusitis, viral infection, bronchitis, influenza, pharyngitis and other (COVID) Lab Data Labs: Lab Results 07/17/24 Range/Units 10:23 POC Grp A Strep Screen Negative (Negative) Discharge Plan Discharge Clinical Impression: Pharyngitis Qualifiers: Pharyngitis/tonsillitis etiology: unspecified etiology Qualified Code(s): J02.9 - Acute pharyngitis, unspecified Patient Disposition: Home Condition: Stable Instructions: Antibiotic Form, Pharyngitis (ED) Additional Instructions: Strep test was negative in the clinic today. We will send strep for culture. Increase fluids and stay well hydrated Tylenol/motrin for pain/fever Flonase and OTC antihistamines as directed Vicks vapor rub to open sinuses Sinus rinses for congestion Cepacol spray, cough drops, throat lozenges, warm tea with honey/lemon, gargle salt water to soothe throat BRAT diet for diarrhea Clear liquids x 24 hours then advance as tolerated for nausea/vomiting Go to the ED if you develop a worsening in your condition- high fever not controlled by Tylenol or Motrin, dehydration, weakness, lethargy, shortness of breath, or chest pain. Follow up with your PCP in 3-5 days if symptoms persist. Patient Language: Mozambican Prescriptions: No Action No Home Medications Follow-up/Referrals: PHYSICIAN,SUPERVISOR MODERN LANGUAGES [Primary Care Provider] - Stand Alone Forms: Work/School Release IP Time of Disposition: 10:23 Quality NIHSS Nursing Documentation ED NIHSS nursing documentation: reviewed/agree
[2024-07-17 10:25] LABS: EDSTREPNEGPOS1 Negative (Negative)
--- OUTSIDE RECORDS SUMMARY | 2024-07-17 10:39 | XMS_ITS | Clinical Summary ---
Author Organization [facility] Address [address] [place] [address] Care Team Providers Care Associate Merchandiser Name Role Phone Sissy Thorpe MD Primary Care Provider [phone] Source Comments [facility],non-owned Affiliates and Associated Physician Practices is amultiple site organization consisting of ambulatory clinics and hospital sitesin [place], [place], [place] and [place]. This disclosure is being madepursuant to the Care Everywhere program and may not contain all information available regarding this patient. Last updated 17.[facility] Allergies No known active allergies Medications * Be aware that medications may not be up to date on this document. Alwaysverify current medications with the patient. medroxyPROGESTER one (DEPO-PROVERA) 150 MG/ML prefilled syringe INJECT UTD [...] drink = 0.6 oz pur e alcohol) Comments No Sex and Gender Information Value Date Recorded Sex Assigned at Not on file Legal Sex Female 5:41 AM [employer] OPER[employer] Gender Identity Not on file Sexual Orientation [...] Health Maintenance Due Date Last Done Comments HIV SCREENING 2016 HPV VACCINE (1 - 3-dose series) 2016 CHLAMYDIA/GONORRHEA SCREENING 2017 MENINGOCOCCAL (Group B) VACC INE SHARED DECISION-MAKING (1 of 2 - Standard) 2017 HEPATITIS C SCREENING 11/11/2019 DTAP/TDAP/TD VACCINES (1 - Tdap) 2020 HEPATITIS B VACCINE (1 of 3 - 19+ 3-dose series) 2020 COVID-19 VACCINE (1 - 2023-2 5 season) 2023 DEPRESSION SCREENING 02/28/2024 INFLUENZA VACCINE (Season Ended) 2024 11/11/19 ZOSTER VACCINE (1 of 2) 11/16/2051 HIB VACCINE Aged Out No longer eligi ble based on patient's age to complete this topic MENINGOCOCCAL GROUPS A/C/Y/W VACCINE Aged Out No longer eligible b ased on patient's age to complete this topic PNEUMOCOCCAL VACCINE Aged Out No long er eligible based on patient's age to complete this topic Insurance [facility] [phone] (Work) [address] [place] [address] [facility] Member Subscriber Plan / Payer ( fective 2017-Present) Name:Willem Kirby Member ID:Not on file Relation to Subscriber:Child Name:JEWEL KIRBY Date of :1972 (Home) (Work) Address: [address] [place] [address] Payer ID:[id number] (NAIC) Type:HMO Address: [place] [phone] [facility] Care Teams Associate Merchandiser Relationship Specialty Start Date End Date Sissy Thorpe MD [address] [place] [id number] PCP - General Pediatrics 09/26/12
== END 2024-07-17 10:25 | disposition home or self-care (01) ==
PROVIDERS: Emergency Provider Nurse Practitioner Family
DX: J02.9 Acute pharyngitis, unspecified (principal); F12.90 Cannabis use, unspecified, uncomplicated
CPT/HCPCS: 87081; 87880; 99213; G0463